=== PATIENT | female | born 1990 | race American Indian/Alaskan Native ===

== ENCOUNTER 2017-03-11 18:02 | Emergency (ER) | payer MEDICAID ==
[2017-03-11 18:43] LABS: Urine Drugs of Abuse Note Disclamer
[2017-03-11 18:57] LABS: Bilirubin,Urine NEG (Negative); Blood,Urine MOD (Negative); Ketones,Urine 20 mg/dL (Negative); Leukocyte Esterase,Urine SM (Negative); Mucus,Urine 3+ /HPF; Nitrite,Urine NEG (Negative)
[2017-03-11 19:26] LABS: Basophils % (Auto) 0.4 % (0.0-1.8); Eosinophils % (Auto) 1.7 % (0.0-4.3); Hematocrit 37.7 % (30.3-42.9); Mean Corpuscular HGB Conc 32 % (30-34); Mean Corpuscular Hemoglobin 28 pg (28-32); Mean Corpuscular Volume 87 fl (79-97); Platelet Count 231 K/mm3 (140-440); Red Blood Count 4.35 M/mm3 (3.65-5.03); Red Cell Distribution Width 13.6 % (13.2-15.2); White Blood Count 8.6 K/mm3 (4.5-11.0)
[2017-03-11 19:45] LABS: Anion Gap 19 mmol/L; BUN/Creatinine Ratio 11.42; Blood Urea Nitrogen 8 mg/dL (7-17); Carbon Dioxide 22 mmol/L (22-30); Chloride 101.8 mmol/L (98-107); Glucose 116 mg/dL (65-100); Potassium 3.5 mmol/L (3.6-5.0); Sodium 139 mmol/L (137-145)
[2017-03-11] MEDS ORDERED: BENADRYL IM ONE (19:46)
[2017-03-11] MEDS ORDERED: GEODON IM ONE (19:46)
--- NOTE | 2017-03-11 21:28 | Cat Scan Report ---
FINAL REPORT EXAM: CT HEAD/BRAIN WO CON HISTORY: acute psychosis TECHNIQUE: Standard unenhanced CT of the head at 5.0 millimeter axial increments PRIORS: None. FINDINGS: The ventricular system is normal in size and configuration. There is no evidence for parenchymal volume loss. There is no evidence for mass lesion, mass effect, midline shift, acute intracranial hemorrhage, or acute ischemia/ infarction. Visualized paranasal sinuses are clear. IMPRESSION: Negative CT of the head. No acute intracranial process noted.
--- NOTE | 2017-03-12 01:04 | Emergency Department Report ---
ED Psych HPI - General Chief Complaint: Psych Stated Complaint: VAGINAL BLEEDING/CRAMPING/ABD PAIN Time Seen by Provider: 03/11/17 19:18 Source: EMS Mode of arrival: Ambulatory Limitations: Other - History of Present Illness Initial Comments: 26-year-old female withpast medical history presents to the hospital with possible psychiatric disorder. Patient was brought in by the police had to being found walking naked down the street. Initially boyfriend was present and nurse reports that boyfriend stated patient just ran out of the house and did not provide any additional information. Patient admits to hearing voices but would not be specific. Patient states she does not know where she is or why she is here. No pain related complaints. Patient appears to be on her menstrual cycle at this time - Related Data Allergies Allergy/AdvReac Type Severity Reaction Status Date / Time No Known Allergies Allergy Unverified 03/11/17 18:38 ED Review of Systems ROS: Stated complaint: VAGINAL BLEEDING/CRAMPING/ABD PAIN Other details as noted in HPI Comment: All other systems reviewed and negative Other: Constitutional: No fevers Neck: Denies pain Respiratory: Denies cough wheezing shortness of breath Cardiovascular: Denies chest pain, palpitations, syncope GI: Denies abdominal pain : Denies dysuria Musculoskeletal: Denies back pain Skin: Denies rash Neurologic: Denies headach Psychiatric: Denies suicidal ideation ED Past Medical Hx - Past Medical History Previous Medical History?: No - Surgical History Past Surgical History?: No - Social History Smoking Status: Never Smoker Substance Use Type: None ED Physical Exam - General Limitations: No Limitations - Other Other exam information: General: No limitations, patient is alert in no acute distress Head exam: Atraumatic, normocephalic Eyes exam: Normal appearance, pupils equal reactive to light, extraocular movements intact ENT: Moist mucous membrane, normal oropharynx Neck exam: Normal inspection, full range of motion, no meningismus nontender Respiratory exam: Clear to auscultation bilateral, no wheezes, rales, crackles Cardiovascular: Normal rate and rhythm, normal heart sounds Abdomen: Soft, nondistended, and nontender, with normal bowel sounds, no rebound, or guarding Extremity: Full range of motion normal inspection no deformity Back: Normal Inspection, full range of motion, no tenderness Neurologic: Alert, oriented to self, cranial nerves intact, no motor or sensory deficit, Psychiatric: normal affect, normal mood Skin: Warm, dry, intact ED Course Vital Signs 03/11/17 18:35 Temperature 98.7 F Pulse Rate 116 H Respiratory 20 Rate Blood Pressure 134/90 O2 Sat by Pulse 98 Oximetry - Reevaluation(s) Reevaluation #1: 03/11/17 19:47 Patient became more agitated and irritated in the ED and required physical restraints and IM medication ED Medical Decision Making - Lab Data Result diagrams: 03/11/17 19:12 03/11/17 19:12 Lab Results 03/11/17 03/11/17 03/11/17 Range/Units 18:35 18:35 18:35 WBC (4.5-11.0) K/mm3 RBC (3.65-5.03) M/mm3 Hgb (10.1-14.3) gm/dl Hct (30.3-42.9) % MCV (79-97) fl MCH (28-32) pg MCHC (30-34) % RDW (13.2-15.2) % Plt Count (140-440) K/mm3 Lymph % (Auto) (13.4-35.0) % [place] % (Auto) (0.0-7.3) % Eos % (Auto) (0.0-4.3) % Baso % (Auto) (0.0-1.8) % Lymph # (1.2-5.4) K/mm3 [place] # (0.0-0.8) K/mm3 Eos # (0.0-0.4) K/mm3 Baso # (0.0-0.1) K/mm3 Seg Neutrophils % (40.0-70.0) % Seg Neutrophils # (1.8-7.7) K/mm3 Sodium (137-145) mmol/L Potassium (3.6-5.0) mmol/L Chloride (98-107) mmol/L Carbon Dioxide (22-30) mmol/L Anion Gap mmol/L BUN (7-17) mg/dL Creatinine (0.7-1.2) mg/dL Estimated GFR ml/min BUN/Creatinine Ratio % Glucose (65-100) mg/dL Calcium (8.4-10.2) mg/dL Urine Color Yellow (Yellow) Urine Turbidity Clear (Clear) Urine pH 5.0 (5.0-7.0) Ur Specific [place] 1.027 (1.003-1.030) Urine Protein 100 mg/dl (Negative) mg/dL Urine Glucose (UA) Neg (Negative) mg/dL Urine Ketones 20 (Negative) mg/dL Urine Blood Mod (Negative) Urine Nitrite Neg (Negative) Urine Bilirubin Neg (Negative) Urine Urobilinogen 2.0 (<2.0) mg/dL Ur Leukocyte Esterase Sm (Negative) Urine WBC (Auto) 46.0 H (0.0-6.0) /HPF Urine RBC (Auto) 56.0 (0.0-6.0) /HPF U Epithel Cells (Auto) 1.0 (0-13.0) /HPF Urine Mucus 3+ /HPF Urine HCG, Qual Negative (Negative) Urine Opiates Screen Presumptive negative Urine Methadone Screen Presumptive negative Ur Barbiturates Screen Presumptive negative Ur Phencyclidine Scrn Presumptive negative Ur Amphetamines Screen Presumptive negative U Benzodiazepines Scrn Presumptive negative Urine Cocaine Screen Presumptive negative U Marijuana (THC) Screen Presumptive positive Drugs of Abuse Note Disclamer Plasma/Serum Alcohol (0-0.07) gm% 03/11/17 03/11/17 03/11/17 Range/Units 19:12 19:12 19:12 WBC 8.6 (4.5-11.0) K/mm3 RBC 4.35 (3.65-5.03) M/mm3 Hgb 12.0 (10.1-14.3) gm/dl Hct 37.7 (30.3-42.9) % MCV 87 (79-97) fl MCH 28 (28-32) pg MCHC 32 (30-34) % RDW 13.6 (13.2-15.2) % Plt Count 231 (140-440) K/mm3 Lymph % (Auto) 14.1 (13.4-35.0) % [place] % (Auto) 7.8 H (0.0-7.3) % Eos % (Auto) 1.7 (0.0-4.3) % Baso % (Auto) 0.4 (0.0-1.8) % Lymph # 1.2 (1.2-5.4) K/mm3 [place] # 0.7 (0.0-0.8) K/mm3 Eos # 0.1 (0.0-0.4) K/mm3 Baso # 0.0 (0.0-0.1) K/mm3 Seg Neutrophils % 76.0 H (40.0-70.0) % Seg Neutrophils # 6.6 (1.8-7.7) K/mm3 Sodium 139 (137-145) mmol/L Potassium 3.5 L (3.6-5.0) mmol/L Chloride 101.8 (98-107) mmol/L Carbon Dioxide 22 (22-30) mmol/L Anion Gap 19 mmol/L BUN 8 (7-17) mg/dL Creatinine 0.7 (0.7-1.2) mg/dL Estimated GFR > 60 ml/min BUN/Creatinine Ratio 11.42 % Glucose 116 H (65-100) mg/dL Calcium 9.0 (8.4-10.2) mg/dL Urine Color (Yellow) Urine Turbidity (Clear) Urine pH (5.0-7.0) Ur Specific [place] (1.003-1.030) Urine Protein (Negative) mg/dL Urine Glucose (UA) (Negative) mg/dL Urine Ketones (Negative) mg/dL Urine Blood (Negative) Urine Nitrite (Negative) Urine Bilirubin (Negative) Urine Urobilinogen (<2.0) mg/dL Ur Leukocyte Esterase (Negative) Urine WBC (Auto) (0.0-6.0) /HPF Urine RBC (Auto) (0.0-6.0) /HPF U Epithel Cells (Auto) (0-13.0) /HPF Urine Mucus /HPF Urine HCG, Qual (Negative) Urine Opiates Screen Urine Methadone Screen Ur Barbiturates Screen Ur Phencyclidine Scrn Ur Amphetamines Screen U Benzodiazepines Scrn Urine Cocaine Screen U Marijuana (THC) Screen Drugs of Abuse Note Plasma/Serum Alcohol < 0.01 (0-0.07) gm% - Radiology Data Radiology results: report reviewed (CT head: No acute findings) - Medical Decision Making UA is only positive for marijuana. Patient will be covered for UTI although likely contaminated Garcia this patient is also on her menstrual cycle. 1013 and trace of form have been signed. Patient is medically cleared - Differential Diagnosis acute psychosis, schizophrenia, bipolar, intracranial lesion, substance abu Critical Care Time: No Critical care attestation.: If time is entered above; I have spent that time in minutes in the direct care of this critically ill patient, excluding procedure time. ED Disposition Clinical Impression: Psychosis, Bizarre behavior, UTI (urinary tract infection), Marijuana use Disposition: DC/TX-65 PSY HOSP/PSY UNIT Is pt being admited?: No Does the pt Need Aspirin: No Condition: Stable Time of Disposition: 01:05 (awaiting acceptance)
[2017-03-12] MEDS: MACROBID PO SCH ×3 (01:25→21:39)
[2017-03-12] MEDS ORDERED: BENADRYL IM PRN (09:18)
[2017-03-12] MEDS ORDERED: ATIVAN IM PRN (09:18)
[2017-03-12] MEDS ORDERED: HALDOL IM PRN (09:18)
[2017-03-13] MEDS: MACROBID PO SCH ×2 (11:54→23:11)
--- NOTE | 2017-03-13 15:23 | Consultation ---
History of Present Illness - Reason for Consult Consult date: 03/13/17 Reason for consult: Mental Health Evaluation Requesting physician: ALINE GUERRERO - Chief Complaint Chief complaint: "I wanted to get naked" - History of Present Psychiatric Illness 26-year-old female with no past medical history presents to the hospital with possible psychiatric disorder. Today patient is calm and cooperative during the assessment. She stated that she was hearing voices telling her to run outside naked. She stated that this was the first time she ever experienced AH's. She stated that she had been smoking marijuana prior to hearing the voices. She denies a mental health dx. She stated that she smoke marijuana often. She denies SI/HI's, AVH's, and depression symptoms. She denies sleep disturbance and a poor appetite now or in the past. Medications and Allergies Allergies Allergy/AdvReac Type Severity Reaction Status Date / Time No Known Allergies Allergy Unverified 03/11/17 18:38 Home Medications Medication Instructions Recorded Confirmed Last Taken Type No Known Home Medications [No 03/12/17 03/12/17 Unknown History Reported Home Medications] Active Meds: Active Medications Diphenhydramine HCl (Benadryl) 50 mg IM Q6H PRN PRN Reason: Agitation Haloperidol Lactate (Haldol) 5 mg IM Q8H PRN PRN Reason: Agitation Last Admin: 03/12/17 09:37 Dose: 5 mg Lorazepam (Ativan) 2 mg IM Q8H PRN PRN Reason: Agitation Nitrofurantoin Macrocrystals (Macrobid) 100 mg PO BID DOROTEO Stop: 03/16/17 10:01 Last Admin: 03/13/17 11:54 Dose: 100 mg Past psychiatric history - Past Medical History Past Medical History: No medical history Past Surgical History: No surgical history - past Psychiatric treatment and history psychiatric treatment history: Denies a psy hx. Per the patient, her brother has schizophrenia. - Social History Social history: lives with family ([employer] graduate) Mental Status Exam - Vital signs Last Vital Signs Temp 98.3 F 03/12/17 22:00 Pulse 78 03/12/17 22:00 Resp 18 03/12/17 22:00 BP 116/78 03/12/17 22:00 Pulse Ox 98 03/12/17 22:00 - Exam Narrative exam: ROS: (+) psychotic on admission MSE: Appearance: calm, cooperative Behavior: regular eye contact Speech: regular rate and tone Mood: "my head is clear" Affect: congruent to mood Thought Process: circumstantial Thought Content: denies SI/HI's and AVH's Motor Activity: ambulatory Cognition: A/O x3 Insight: variable Judgment: variable Results Result Diagrams: 03/11/17 19:12 03/11/17 19:12 All other labs normal. Assessment and Plan Assessment and plan: Impression: Substance Induced Psychosis. Substance Use DO (marijuana). Today patient is calm and cooperative during the assessment. She denies AH's. DDx: Schizophrenia paranoid type, R/O Bipolar Recommendation/Plan: Continue 1013. Gather collateral information to help determine proper dispo and treatment.
[2017-03-14] MEDS: MACROBID PO SCH (11:18)
[2017-03-14 12:46] VITALS: BP 140/82
--- NOTE | 2017-03-14 15:23 | Progress Note ---
Subjective - Reason for Consult Consult date: 03/14/17 Reason for consult: Psychiatry Follow-up - Chief Complaint Chief complaint: "Will I be leaving today" 26-year-old female with no past medical history presents to the hospital with possible psychiatric disorder. Today patient is calm and cooperative during the assessment. I spoke with her boyfriend Pete Badillo at [phone] and he stated that she does not have a mental illness nor take any medication. He stated that this was the first time he witnessed this type of behavior from her. He did admit that they smoked marijuana prior to the patient's bizarre behavior. The patient denies SI/HI's, AVH's and depression. She was observed eating her meals and she completed her ADL's. Per the staff, no behavioral disturbances since her admission to [facility]. Mental Status Exam - Vital signs Last Vital Signs Temp 98.9 F 03/14/17 12:44 Pulse 88 03/14/17 12:44 Resp 18 03/14/17 12:44 BP 140/82 03/14/17 12:44 Pulse Ox 98 03/14/17 12:44 - Exam Narrative exam: MSE: Appearance: calm, cooperative Behavior: regular eye contact Speech: regular rate and tone Mood: "okay" Affect: congruent to mood Thought Process: linear Thought Content: denies SI/HI's and AVH's Motor Activity: ambulatory Cognition: A/O x3 Insight: fair Judgment: fair Assessment and Plan Impression: Substance Induced Psychosis. Substance Use DO (marijuana). Today patient is calm and cooperative during the assessment. She denies AH's. Psychosis has resolved. DDx: Schizophrenia paranoid type, R/O Bipolar Recommendation/Plan: Rescind 1013. Discussed the importance to abstain from recreational drug use. Patient given outpatient rehab service for [facility].
--- NOTE | 2017-03-14 17:34 | Emergency Department Report ---
Blank Doc - Documentation Documentation: Patient is a 19. He has old female presented with acute psychosis to the ER. Patient is in assessed by mental health. Today patient is calm, no visual or auditory hallucination, no suicidal or homicidal ideation, no evidence of acute psychosis patient will be discharged home to follow up with her outpatient psychiatric.
== END 2017-03-14 18:54 | disposition home or self-care (01) ==
LOC: ED 18:02 → EEVIPCON 18:02 → ED 03-14 18:54
DX: F29 Unspecified psychosis not due to a substance or known physiological condition (principal); R46.2 Strange and inexplicable behavior; N39.0 Urinary tract infection, site not specified; F12.10 Cannabis abuse, uncomplicated
CPT/HCPCS: 36415; 70450; 80048; 80307; 81001; 81025; 85025; 96372; 99285; G0480; J1200; J1630; J3486; 80320